=== PATIENT | female | born 1940 | race Caucasian/White ===

== ENCOUNTER 2017-02-20 14:14 | Outpatient (CLI) | payer MEDICARE, OTHER ==
--- NOTE | 2017-02-21 05:25 | Diagnostic Imaging Report ---
~ Report Submission Date: Feb 20, 2017 9:46:16 PM CDT Patient ~ Study Name: DEBBIE TALBOT ~ Date: Feb 20, 2017 2:24:10 PM CDT ~ Modality Type: CR Gender: F ~ Description: LOWER EXTREMITY : 42 ~ Institution: [facility] Physician: CHANTEL RECINOS ~ ~ ~ ~ 2 views of the left tibia and fibula Clinical history: Left leg deformity Findings: 2 views demonstrate no fracture. No foreign bodies are identified. The alignment is normal. No foreign bodies. Impression: Negative ~ Electronically signed on Feb 20, 2017 9:46:16 PM CDT by: Sherman MAGALLANES
== END 2017-02-20 14:15 ==
LOC: RAD 14:14
PROVIDERS: ATTEND Family Medicine
DX: M21.952 Unspecified acquired deformity of left thigh (principal)
CPT/HCPCS: 73590

== ENCOUNTER 2017-02-25 08:02 | Outpatient (CLI) | payer MEDICARE, OTHER ==
--- NOTE | 2017-02-26 06:10 | Diagnostic Imaging Report ---
Report Submission Date: Feb 25, 2017 5:39:32 PM CDT Patient ~ Study Name: DEBBIE TALBOT ~ Date: Feb 25, 2017 8:49:17 AM CDT ~ Modality Type: MR Gender: F ~ Description: MRI LOW EXT JNT W/O CONTRAST : 42 ~ Institution: [facility] Physician: CHANTEL RECINOS ~ ~ ~ ~ HISTORY: ~ 77-year-old female with left ankle pain since injury in September 2016 , pain medially. COMPARISON: Radiographs of the left lower leg dated 02/20/2017 TECHNIQUE: Multiplanar multisequence noncontrast MR images of the left ankle were performed. FINDINGS: No acute fracture about the left ankle. ~The anterior and posterior talofibular ligaments, anterior and posterior tibiofibular ligaments, calcaneofibular ligament, and deltoid ligament are intact. ~ There is a small amount of fluid about the peroneal tendons just proximal and distal to the fibula. No other evidence of tendon tear or tenosynovitis involving the tendons of the left ankle. ~The Achilles tendon is normal in signal and morphology. ~There is thickening of the plantar fascia and small plantar calcaneal bone spur. ~ Ganglion cysts extend into the sinus tarsi and inferior to the calcaneocuboid joint. ~No evidence of talar dome osteochondral lesion. ~There is chondromalacia of the distal tibial articular surface anteriorly. There are subtalar degenerative changes, with subchondral cysts involving the talus and calcaneus on both sides of the anterior and middle facets. ~There are mild midfoot degenerative changes. ~There is a small ankle effusion. ~There is diffuse subcutaneous edema, greatest posteromedial to the ankle. IMPRESSION: 1. ~No fracture or acute osseous abnormality about the left ankle. 2. ~Mild peroneal tenosynovitis. ~ 3. ~Plantar calcaneal bone spur and thickening of the plantar fascia, consistent with chronic plantar fasciitis. 4. ~The major ligaments about the left ankle are intact. 5. ~Ankle, subtalar, and midfoot degenerative changes. ~Ganglion cysts are identified extending into the sinus tarsi. ~Does the patient have symptoms of sinus tarsi syndrome? 6. ~Subcutaneous edema, greatest along the posteromedial aspect of the left ankle. ~This may be related to a more systemic cause of subcutaneous edema. ~ Electronically signed on Feb 25, 2017 5:39:32 PM CDT by: Lalit MAGALLANES
== END 2017-02-25 08:15 | disposition home or self-care (01) ==
LOC: RAD 08:02
PROVIDERS: ATTEND Family Medicine
DX: M21.952 Unspecified acquired deformity of left thigh (principal)
CPT/HCPCS: 73718